=== PATIENT | female | born 1980 | race Caucasian/White ===

== ENCOUNTER → 2016-06-28 | Outpatient (CLI) | payer OTHER | LOC: SLEEP-COR 21:30 | DX: G47.33 Obstructive sleep apnea (adult) (pediatric) (principal) | CPT/HCPCS: 95810 ==

== ENCOUNTER 2020-10-21 14:46 | Emergency (ER) | payer OTHER ==
[~2020-10-21] VITALS: Ht 175.3 cm; Wt 90.7 kg
[~2020-10-21 14:46] MED LIST: ASPIR-LOW81 MG PO; ASPIRIN EC81 MG PO; CLARITIN10 MG PO; CRYSELLE-28 TA1 EACH PO; CUBICIN 500 MG500 MG IV; EFFEXOR XR150 MG PO; FIBER625 MG PO; FLEXERIL 10 MG10 MG PO; GLIPIZIDE5 MG PO; GLUCOTROL5 MG PO; HUMULIN 70100 UNIT/2 SQ; KEPPRA750 MG PO; LEVAQUIN750 MG PO; LEVOTHYROXINE50 MCG PO; LOPRESSOR 25 MG25 MG PO; PROZAC20 MG PO; PROZAC40 MG PO; ROCEPHIN 2 GM AD2 GM IV; SIMVASTATIN10 MG PO; SYNTHROID50 MCG PO; TRAZODONE HCL50 MG PO; ZOCOR10 MG PO
[2020-10-21 15:53] LABS: HEMOGLOBIN 11.5 gm/dl (12.3-15.3); RED BLOOD COUNT 3.93 M/UL (4.00-5.10); WHITE BLOOD COUNT 12.6 K/UL (4.5-11.0)
[2020-10-21] MEDS ORDERED: BACTRIM DS TAB1 EACH PO (17:56)
[2020-10-21] MEDS ORDERED: CIPRO500 MG PO (17:56)
[2020-10-24] MEDS ORDERED: CIPRO500 MG PO (08:48)
[2020-10-24] MEDS ORDERED: BACTRIM DS TAB1 EACH PO (08:49)
== END 2020-10-21 20:00 | disposition home or self-care (01) ==
LOC: ER1 14:46
PROVIDERS: Physician Assistant
DX: S90.852A Superficial foreign body, left foot, initial encounter (principal); L03.116 Cellulitis of left lower limb; Z90.49 Acquired absence of other specified parts of digestive tract; Z88.8 Allergy status to other drugs, medicaments and biological substances
CPT/HCPCS: 73630; 73700; 80053; 85025; 85652; 86140; 87040; 94760; 96365; 99284; J0878; J7030

== ENCOUNTER 2020-10-25 14:55 | Inpatient (IN) | payer OTHER ==
[~2020-10-25] VITALS: Ht 175.3 cm; Wt 113.4 kg
[~2020-10-25 14:55] MED LIST changes: +BACTRIM DS TAB1 EACH PO; +CIPRO500 MG PO
[2020-10-25] MEDS ORDERED: FARXIGA10 MG PO (16:42)
[2020-10-25] MEDS ORDERED: LORATADINE10 MG PO (16:43)
[2020-10-25] MEDS ORDERED: LISINOPRIL5 MG PO (16:43)
[2020-10-25 17:16] LABS: HEMOGLOBIN 11.2 gm/dl (12.3-15.3); RED BLOOD COUNT 3.78 M/UL (4.00-5.10); WHITE BLOOD COUNT 11.2 K/UL (4.5-11.0)
[2020-10-26 06:19] LABS: HEMOGLOBIN 11.6 gm/dl (12.3-15.3); RED BLOOD COUNT 3.9 M/UL (4.00-5.10); WHITE BLOOD COUNT 9.7 K/UL (4.5-11.0)
[2020-10-26] MEDS ORDERED: LOPRESSOR 25 MG25 MG PO (07:29)
[2020-10-26] MEDS ORDERED: NOVOLOG MI100 UNIT/1 SC ×2 (07:31→07:32)
[2020-10-26] MEDS ORDERED: TRAZODONE HCL50 MG PO (07:35)
[2020-10-26] MEDS ORDERED: KEPPRA750 MG PO (07:36)
[2020-10-26] MEDS ORDERED: EFFEXOR XR 150150 MG PO (07:37)
[2020-10-26] MEDS ORDERED: BUPRENORPHIN-N1 EACH SL (08:48)
[2020-10-26] MEDS ORDERED: NEURONTIN800 MG PO (08:48)
[2020-10-26] MEDS ORDERED: TRULICITY1.5 MG/0.5 SQ (08:51)
[2020-10-27 06:28] LABS: RED BLOOD COUNT 3.45 M/UL (4.00-5.10); WHITE BLOOD COUNT 6.7 K/UL (4.5-11.0)
[2020-10-28 07:39] LABS: HEMOGLOBIN 9.7 gm/dl (12.3-15.3); RED BLOOD COUNT 3.32 M/UL (4.00-5.10)
[2020-10-29 03:50] LABS: HEMOGLOBIN 9.7 gm/dl (12.3-15.3); RED BLOOD COUNT 3.34 M/UL (4.00-5.10); WHITE BLOOD COUNT 5.7 K/UL (4.5-11.0)
[2020-10-29 04:13] LABS: BUN/CREATININE RATIO 15 (0-10)
[2020-10-30 03:22] LABS: HEMOGLOBIN 9.7 gm/dl (12.3-15.3); RED BLOOD COUNT 3.38 M/UL (4.00-5.10); WHITE BLOOD COUNT 5.8 K/UL (4.5-11.0)
[2020-10-30 03:39] LABS: BUN/CREATININE RATIO 11 (0-10)
[2020-10-30] MEDS ORDERED: HUMALOG 10100 UNITS/ SC (13:10)
[2020-10-30] MEDS ORDERED: HYDRALAZINE HCL25 MG PO (13:23)
[2020-10-30] MEDS ORDERED: ZYVOX600 MG PO (13:23)
[2020-10-30] MEDS ORDERED: LANTUS INS100 UTS/M1 SC (13:23)
[2020-10-30] MEDS ORDERED: DEX4 GLUCOSE4 GM PO (14:29)
== END 2020-10-30 18:52 | disposition home health service (06) | DRG 264 ==
LOC: M/S 14:55
PROVIDERS: Physician Assistant; Physician Assistant Medical; Podiatrist Foot & Ankle Surgery; ADMIT Internal Medicine
PROC: 0J9R0ZZ Drainage of Left Foot Subcutaneous Tissue and Fascia, Open Approach (ICD-10-PCS; 2020-10-26)
PROC: 0JBR0ZZ Excision of Left Foot Subcutaneous Tissue and Fascia, Open Approach (ICD-10-PCS; principal; 2020-10-26 12:04)
DX: E11.52 Type 2 diabetes mellitus with diabetic peripheral angiopathy with gangrene (principal); L03.116 Cellulitis of left lower limb; E87.1 Hypo-osmolality and hyponatremia; E87.2 Acidosis; Z20.822 Contact with and (suspected) exposure to COVID-19; L02.416 Cutaneous abscess of left lower limb; M72.2 Plantar fascial fibromatosis; I10 Essential (primary) hypertension; E87.6 Hypokalemia; E03.9 Hypothyroidism, unspecified; G89.29 Other chronic pain; I95.9 Hypotension, unspecified; E11.65 Type 2 diabetes mellitus with hyperglycemia; E11.40 Type 2 diabetes mellitus with diabetic neuropathy, unspecified; E78.5 Hyperlipidemia, unspecified; F41.9 Anxiety disorder, unspecified; F32.9 Major depressive disorder, single episode, unspecified; W01.0XXA Fall on same level from slipping, tripping and stumbling without subsequent striking against object, initial encounter; Z79.82 Long term (current) use of aspirin; Z79.4 Long term (current) use of insulin; Z90.49 Acquired absence of other specified parts of digestive tract; Z89.411 Acquired absence of right great toe; Z98.51 Tubal ligation status; Z88.1 Allergy status to other antibiotic agents; Z82.49 Family history of ischemic heart disease and other diseases of the circulatory system; Z83.3 Family history of diabetes mellitus; Z80.9 Family history of malignant neoplasm, unspecified; Y92.098 Other place in other non-institutional residence as the place of occurrence of the external cause
CPT/HCPCS: 36415; 71045; 73718; 80048; 80053; 82962; 83036; 83735; 84703; 85025; 85027; 85610; 86140; 87040; 87070; 87077; 87186; 87205; 90714; J1100; J1670; J2001; J2020; J2250; J2405; J2543; J2704; J2795; J3010; J7030; J7120; U0002

== ENCOUNTER → 2021-01-23 | Outpatient (CLI) | payer OTHER ==
[~2021-01-23] MED LIST changes: +BUPRENORPHIN-N1 EACH SL; +DEX4 GLUCOSE4 GM PO; +EFFEXOR XR 150150 MG PO; +FARXIGA10 MG PO; +HUMALOG 10100 UNITS/ SC; +HYDRALAZINE HCL25 MG PO; +LANTUS INS100 UTS/M1 SC; +LISINOPRIL5 MG PO; +LORATADINE10 MG PO; +NEURONTIN800 MG PO; +NOVOLOG MI100 UNIT/1 SC; +TRULICITY1.5 MG/0.5 SQ; +ZYVOX600 MG PO
== END ==
LOC: OPSV 06:28
DX: E11.628 Type 2 diabetes mellitus with other skin complications (principal); S91.301A Unspecified open wound, right foot, initial encounter
CPT/HCPCS: Q4133

== ENCOUNTER → 2021-01-30 | Outpatient (CLI) | payer OTHER | LOC: OPSV 07:00 | DX: E11.621 Type 2 diabetes mellitus with foot ulcer (principal); L97.419 Non-pressure chronic ulcer of right heel and midfoot with unspecified severity | CPT/HCPCS: Q4133 ==

== ENCOUNTER → 2021-02-06 | Outpatient (CLI) | payer OTHER | LOC: OPSV 07:00 | DX: E11.621 Type 2 diabetes mellitus with foot ulcer (principal); L97.419 Non-pressure chronic ulcer of right heel and midfoot with unspecified severity | CPT/HCPCS: Q4133 ==

== ENCOUNTER → 2021-02-13 | Outpatient (CLI) | payer OTHER | LOC: OPSV 07:00 | DX: E11.621 Type 2 diabetes mellitus with foot ulcer (principal); L97.429 Non-pressure chronic ulcer of left heel and midfoot with unspecified severity; M79.81 Nontraumatic hematoma of soft tissue | CPT/HCPCS: Q4133 ==

== ENCOUNTER → 2021-02-20 | Outpatient (CLI) | payer OTHER | LOC: OPSV 07:00 | DX: E11.621 Type 2 diabetes mellitus with foot ulcer (principal); L97.429 Non-pressure chronic ulcer of left heel and midfoot with unspecified severity | CPT/HCPCS: Q4133 ==

== ENCOUNTER 2021-03-06 13:04 | Emergency (ER) | payer OTHER ==
[2021-03-06 14:49] LABS: HEMOGLOBIN 12.1 gm/dl (12.3-15.3); RED BLOOD COUNT 4.18 M/UL (4.00-5.10); WHITE BLOOD COUNT 11.7 K/UL (4.5-11.0)
[2021-03-06 15:11] LABS: BUN/CREATININE RATIO 12 (0-10)
== END 2021-03-06 16:35 | disposition home or self-care (01) ==
LOC: ER1 13:04
PROVIDERS: Emergency Medicine
DX: I60.9 Nontraumatic subarachnoid hemorrhage, unspecified (principal); R56.9 Unspecified convulsions; E11.9 Type 2 diabetes mellitus without complications; I10 Essential (primary) hypertension; E78.5 Hyperlipidemia, unspecified
CPT/HCPCS: 70450; 80053; 81001; 82550; 82553; 83605; 83874; 84484; 84703; 85025; 87040; 99285; J1953

== ENCOUNTER → 2021-04-24 | Outpatient (CLI) | payer OTHER | LOC: LAB 10:24 | DX: E11.628 Type 2 diabetes mellitus with other skin complications (principal); S90.922A Unspecified superficial injury of left foot, initial encounter | CPT/HCPCS: 87070; 87205 ==